=== PATIENT | male | born 1955 | race Caucasian/White ===

== ENCOUNTER → 2017-05-24 | Outpatient (CLI) | payer BC ==
--- NOTE | 2017-05-24 10:42 | US ---
History: Liver lesion seen on prior echo performed May 03, 2017 Study: Ultrasound of the liver Findings: There is a approximately 2 cm cystic lesion with good acoustic enhancement centrally in the right lobe of the liver. There is a contiguous adjacent smaller cyst measuring approximately 1 cm di ameter. There is a subcapsular ventral 1.5 cm cyst in the right lobe. The liver is overall not enlarg ed. The gallbladder is normal in size without stone or sludge or wall thickening. The common hepatic duct measures 4.5 mm diameter. The right kidney measures 10.07 by 5.1 x 6.67 cm. There is no right renal mass or calculus or hydrone phrosis. There is no ascites. The IVC is patent. Impression: 1. Cystic lesions in the liver, otherwise unremarkable examination Reported By:
== END | disposition home or self-care (01) ==
LOC: RAD 08:25
PROVIDERS: ATTEND Internal Medicine
DX: K76.89 Other specified diseases of liver (principal)
CPT/HCPCS: 76705